=== PATIENT | male | born 1955 | race Caucasian/White ===

== ENCOUNTER → 2017-12-04 | Outpatient (CLI) | payer MEDICARE ==
[2017-12-04 11:28] LABS: ANION GAP 17 (5-19); BLOOD UREA NITROGEN 118 mg/dL (7-20); CALCIUM 9.6 mg/dL (8.4-10.2); CHLORIDE 79 mmol/L (98-107); GLUCOSE 162 mg/dL (75-110); SODIUM 135.5 mmol/L (137-145)
[2017-12-04 11:43] LABS: CARBON DIOXIDE 40 mmol/L (22-30); POTASSIUM 2.9 mmol/L (3.6-5.0)
== END ==
LOC: OD 10:27
PROVIDERS: ATTEND Internal Medicine Nephrology
DX: N18.4 Chronic kidney disease, stage 4 (severe) (principal)
CPT/HCPCS: 36415; 80048

== ENCOUNTER → 2017-12-05 | Outpatient (CLI) | payer MEDICARE ==
[2017-12-05 10:38] LABS: ALBUMIN 4.7 g/dL (3.5-5.0); ANION GAP 18 (5-19); CARBON DIOXIDE 35 mmol/L (22-30); CHLORIDE 81 mmol/L (98-107); GLUCOSE 176 mg/dL (75-110); SODIUM 134.1 mmol/L (137-145)
[2017-12-05 10:45] LABS: BLOOD UREA NITROGEN 115 mg/dL (7-20)
[2017-12-05 11:02] LABS: POTASSIUM 2.7 mmol/L (3.6-5.0)
== END ==
LOC: OD 09:13
PROVIDERS: ATTEND Internal Medicine Nephrology
DX: N18.4 Chronic kidney disease, stage 4 (severe) (principal)
CPT/HCPCS: 36415; 80069

== ENCOUNTER → 2017-12-06 | Outpatient (CLI) | payer MEDICARE ==
[2017-12-06 08:57] LABS: ALBUMIN 4.4 g/dL (3.5-5.0); ANION GAP 16 (5-19); BLOOD UREA NITROGEN 113 mg/dL (7-20); CALCIUM 9.9 mg/dL (8.4-10.2); CARBON DIOXIDE 33 mmol/L (22-30); CHLORIDE 84 mmol/L (98-107); GLUCOSE 189 mg/dL (75-110); PHOSPHORUS 4.4 mg/dL (2.5-4.5); SODIUM 132.9 mmol/L (137-145)
[2017-12-06 09:02] LABS: POTASSIUM 3.1 mmol/L (3.6-5.0)
== END ==
LOC: OD 07:51
PROVIDERS: ATTEND Internal Medicine Nephrology
DX: N18.4 Chronic kidney disease, stage 4 (severe) (principal)
CPT/HCPCS: 36415; 80069

== ENCOUNTER → 2017-12-08 | Outpatient (CLI) | payer MEDICARE ==
[2017-12-08 09:49] LABS: ANION GAP 17 (5-19); BLOOD UREA NITROGEN 95 mg/dL (7-20); CARBON DIOXIDE 32 mmol/L (22-30); CHLORIDE 92 mmol/L (98-107); GLUCOSE 172 mg/dL (75-110); SODIUM 140.5 mmol/L (137-145)
== END ==
LOC: OD 08:35
PROVIDERS: ATTEND Internal Medicine Nephrology
DX: N18.4 Chronic kidney disease, stage 4 (severe) (principal)
CPT/HCPCS: 36415; 80048

== ENCOUNTER → 2017-12-13 | Outpatient (CLI) | payer MEDICARE, OTHER ==
[2017-12-13 14:19] LABS: ANION GAP 17 (5-19); BLOOD UREA NITROGEN 69 mg/dL (7-20); CALCIUM 9.6 mg/dL (8.4-10.2); CARBON DIOXIDE 29 mmol/L (22-30); CHLORIDE 98 mmol/L (98-107); GLUCOSE 117 mg/dL (75-110); PHOSPHORUS 3.7 mg/dL (2.5-4.5); POTASSIUM 3.8 mmol/L (3.6-5.0); SODIUM 144.1 mmol/L (137-145)
== END ==
LOC: OD 13:06
PROVIDERS: ATTEND Internal Medicine Nephrology
DX: N18.4 Chronic kidney disease, stage 4 (severe) (principal)
CPT/HCPCS: 36415; 80069

== ENCOUNTER → 2017-12-18 | Outpatient (CLI) | payer MEDICARE ==
[2017-12-18 11:34] LABS: ALBUMIN 4.1 g/dL (3.5-5.0); ANION GAP 15 (5-19); BLOOD UREA NITROGEN 64 mg/dL (7-20); CALCIUM 9.7 mg/dL (8.4-10.2); CARBON DIOXIDE 31 mmol/L (22-30); CHLORIDE 100 mmol/L (98-107); GLUCOSE 111 mg/dL (75-110); PHOSPHORUS 3.8 mg/dL (2.5-4.5); POTASSIUM 3.9 mmol/L (3.6-5.0); SODIUM 146.1 mmol/L (137-145)
== END ==
LOC: OD 10:25
PROVIDERS: ATTEND Internal Medicine Nephrology
DX: N18.3 Chronic kidney disease, stage 3 (moderate) (principal)
CPT/HCPCS: 36415; 80069

== ENCOUNTER → 2017-12-27 | Outpatient (CLI) | payer MEDICARE ==
[2017-12-27 10:53] LABS: ALBUMIN 4.5 g/dL (3.5-5.0); ANION GAP 17 (5-19); BLOOD UREA NITROGEN 93 mg/dL (7-20); CARBON DIOXIDE 33 mmol/L (22-30); CHLORIDE 95 mmol/L (98-107); GLUCOSE 112 mg/dL (75-110); PHOSPHORUS 4.2 mg/dL (2.5-4.5); POTASSIUM 3.8 mmol/L (3.6-5.0); SODIUM 145.4 mmol/L (137-145)
== END ==
LOC: OD 09:23
PROVIDERS: ATTEND Internal Medicine Nephrology
DX: N18.3 Chronic kidney disease, stage 3 (moderate) (principal)
CPT/HCPCS: 36415; 80069

== ENCOUNTER → 2018-01-01 | Outpatient (CLI) | payer MEDICARE ==
[2018-01-01 12:42] LABS: ANION GAP 13 (5-19); BLOOD UREA NITROGEN 84 mg/dL (7-20); CARBON DIOXIDE 29 mmol/L (22-30); CHLORIDE 104 mmol/L (98-107); GLUCOSE 123 mg/dL (75-110); POTASSIUM 4.9 mmol/L (3.6-5.0); SODIUM 145.8 mmol/L (137-145)
== END ==
LOC: OD 11:14
PROVIDERS: ATTEND Internal Medicine Nephrology
DX: N18.4 Chronic kidney disease, stage 4 (severe) (principal)
CPT/HCPCS: 36415; 80048

== ENCOUNTER → 2018-01-09 | Outpatient (CLI) | payer MEDICARE ==
[2018-01-09 10:53] LABS: ANION GAP 13 (5-19); BLOOD UREA NITROGEN 55 mg/dL (7-20); CALCIUM 9.6 mg/dL (8.4-10.2); CARBON DIOXIDE 28 mmol/L (22-30); CHLORIDE 105 mmol/L (98-107); GLUCOSE 110 mg/dL (75-110); POTASSIUM 4.3 mmol/L (3.6-5.0); SODIUM 145.7 mmol/L (137-145)
== END ==
LOC: OD 09:31
PROVIDERS: ATTEND Internal Medicine Nephrology
DX: N18.4 Chronic kidney disease, stage 4 (severe) (principal); E11.29 Type 2 diabetes mellitus with other diabetic kidney complication
CPT/HCPCS: 36415; 80048